=== PATIENT | female | born 1945 | race Caucasian/White ===

== ENCOUNTER 2019-02-27 14:40 | Emergency (ER) | payer OTHER ==
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
[2019-02-27 16:07] VITALS: BP 131/63
== END 2019-02-27 16:37 | disposition home or self-care (01) ==
LOC: EDUNIT#
DX: S80.01XA Contusion of right knee, initial encounter (principal); S41.111A Laceration without foreign body of right upper arm, initial encounter; S61.412A Laceration without foreign body of left hand, initial encounter; S20.211A Contusion of right front wall of thorax, initial encounter; V18.4XXA Pedal cycle driver injured in noncollision transport accident in traffic accident, initial encounter; Y93.55 Activity, bike riding